=== PATIENT | male | born 1965 | race Caucasian/White ===

== ENCOUNTER 2019-11-30 17:03 | Outpatient (REF) | payer OTHER, SELFPAY ==
[2019-11-30 22:09] LABS: Calculated LDL 181 mg/dL (<100); Cholesterol 261 mg/dL (<200); HDL Cholesterol 63 mg/dL (40-60); Triglyceride 85 mg/dL (<150)
[2019-12-03 08:55] LABS: PSA, Screening 0.3 ng/mL (0.0-3.5)
== END 2019-11-30 17:23 ==
LOC: LBN 17:03
PROVIDERS: PCP Emergency Medicine; Visit Provider Emergency Medicine
DX: E03.9 Hypothyroidism, unspecified (principal); Z12.5 Encounter for screening for malignant neoplasm of prostate; Z13.89 Encounter for screening for other disorder
CPT/HCPCS: 80061; 84153; 84443

== ENCOUNTER 2020-02-12 01:52 | Outpatient (CLI) | payer OTHER, SELFPAY ==
[2020-02-12 11:20] LABS: Calculated LDL 105 mg/dL (<100); Cholesterol 185 mg/dL (<200); HDL Cholesterol 71 mg/dL (40-60); Triglyceride 49 mg/dL (<150)
== END 2020-02-12 02:12 ==
PROVIDERS: PCP Emergency Medicine; Visit Provider Emergency Medicine
DX: E78.5 Hyperlipidemia, unspecified (principal)
CPT/HCPCS: 36415; 80061

== ENCOUNTER 2020-02-12 03:36 | Outpatient (CLI) | payer OTHER, SELFPAY ==
[2020-02-13 17:29] LABS: SARS-CoV-2 RNA Not Detected (NotDetected); SARS-CoV-2 RNA Source Nasal/Nares
== END 2020-02-12 03:56 ==
PROVIDERS: Surgery; PCP Emergency Medicine; Visit Provider Surgery
DX: Z11.59 Encounter for screening for other viral diseases (principal); Z01.818 Encounter for other preprocedural examination
CPT/HCPCS: U0003

== ENCOUNTER 2020-02-15 07:02 | Day surgery (SDC) | payer OTHER, SELFPAY ==
[2020-02-15 07:25] VITALS: BP 120/73; PULSE 62; RESP 18; TEMP 36.4; O2SAT 98
[2020-02-15] MEDS: Lactated Ringers 1,000 ML 80 ML IV (07:47)
--- NOTE | 2020-02-15 08:36 | W.PM.DSUDISC ---
Discharge Plan Disposition Patient Disposition: HOME Condition: Good Discharge Details Reason For Visit: EGD, Colonoscopy Attending Provider: Penelope Howard Primary Care Provider: Jericho Smith Home Meds and New Rx's Prescriptions: Continued rosuvastatin [Crestor] 10 mg tablet 10 mg PO DAILY Qty: 90 RF: 3 triamcinolone acetonide 0.1 % ointment 1 applic TP DAILY Qty: 80 RF: 0 levothyroxine [Synthroid] 100 mcg tablet 100 mcg PO DAILY Qty: 90 RF: 4 Discontinued bisacodyl [Dulcolax (bisacodyl)] 5 mg tablet,delayed release (DR/EC) 5 mg PO ONCE Qty: 4 RF: 0 polyethylene glycol 3350 17 gram/dose powder 17 g PO ONCE Qty: 238 RF: 0 Discharge Instructions Additional Instructions: Findings: Your upper endoscopy showed a possible short segment of Barretts esophagus. My office will contact you with biopsy results. The colonoscopy was normal. Follow up: Plan for routine colon screening in 10 years or sooner if symptoms arise. If Barretts esophagus is confirmed, you will need an upper endoscopy in 3 years. Please call if you develop: fevers >101.5 Nausea or Vomiting Abdominal pain that is not transient DAY SURGERY UNIT POST COLONOSCOPY INSTRUCTIONS 1. Because there will be medication in your system for the next 24 hours, you may feel a little sleepy. Your coordination will be affected. Therefore: a. Do not drive or operate dangerous equipment for 24 hours. b. Do not drink alcohol beverages for 24 hours (not even beer). c. Plan to go home and rest for the day. 2. Generally there are no restrictions on your activity after a day or so has gone by, but you may feel a bit fatigued for a few days. 3 After you arrive home you may have a light meal and return to a normal diet as you can tolerate it without feeling sick to your stomach. 4. After surgery, you may feel pain or discomfort. This should be only transient, but if it persists please contact your doctor. 5. If there are any questions regarding the findings of your procedure, please feel free to contact your doctor. 6. If you are unable to contact your doctor with a problem, contact the hospital at [phone]. 7. Continue all your regular medications unless directed otherwise. I understand the above instructions and have no questions. Signature of Patient or Responsible Adult Escort Date/Time Name of Responsible Adult Escort Signature of Nurse Date/Time Activity:: Activity as Tolerated Diet:: As Tolerated Discharge Orders Discharge Orders: Discharge Order (Routine); Ordered 02/15/20 Ordered By: Penelope Howard DS: Diagnosis Discharge Diagnosis (1) Atypical chest pain: Status: Acute (2) Normal colonoscopy: Status: Acute
--- NOTE | 2020-02-15 08:37 | W.COLOREPORT ---
Date of service: 02/15/20 Time of Service: 09:47 Colonoscopy Report Date of procedure: 02/15/20 Pre-op diagnosis general: Atypical chest pain, colon screening Post-op diagnosis procedure note: other (Possible Barretts, normal colon) Procedure: EGD with distal esophageal biopsy Colonoscopy Surgeon: Penelope Howard Anesthesia proc note operative: MAC Indications: This 54 year old presents for evaluation of atypical chest pain. Recent stress ECHO normal. He is also due for his first screening colonoscopy. No symptoms or FH colon cancer. Procedure Description: The patient was placed in the left lateral position and propofol titrated to sedation. The endoscope was advanced into the esophagus under direct visualization. The scope was passed through the stomach and into the duodenum. There was no duodenitis or ulceration noted. The stomach itself was normal including on retroflexed view of the fundus and lesser curvature. The GE junction was inspected and showed no significant stricture, inflammation, masses. There was a single extension of gastric appearing epithelium into the distal esophagus. This was only 1-2cm long. This region was biopsied. The scope was slowly withdrawn with no other esophageal lesions found. Digital rectal examination revealed no abnormalities. The scope was advanced to the cecum without difficulty. The ileocecal valve and appendiceal orifice were clearly identified. The prep was good. The scope was slowly withdrawn over the course of greater than 6 minutes with no abnormalities seen in the ascending, transverse, descending, sigmoid colon or rectum including on retroflexed view. The patient tolerated the procedure well and was stable to recovery. Plan for routine screening colonoscopy in 10 years or sooner if symptoms indicate.
--- NOTE | 2020-02-15 09:14 | ESO_PTH ---
PATIENT: Jayme Molina LOC: [facility] U#:[id number] AGE/SX: 54/M ROOM: RE02/15/[address]: Penelope Howard MD : [id number] BED: DIS: 02/15/2020 SPEC #: [id number] RECD: 02/15/20 12:30 STATUS: BERNICE REQ #: [id number] ZACHERY: 02/15/20 09:[address]: Penelope Howard DEPT: Surgical Specimen RECD BY: Lexii Gill ENTERED: 02/15/20 12:31 SP TYPE: Eso OTHR DR: Jericho Smith DO Tissues: 1 - ESOPHAGUS BIOPSY Procedures: GROSS AND MICRO LEVEL 4 Comments: [id number]
[2020-02-15 10:20] VITALS: BP 122/81; PULSE 61; RESP 16; TEMP 36.3; O2SAT 100
== END 2020-02-15 10:29 | disposition home or self-care (01) ==
PROVIDERS: PCP Emergency Medicine; Visit Provider Surgery
PROC: (CPT 43239; principal; 2020-02-15 08:45)
DX: Z12.11 Encounter for screening for malignant neoplasm of colon (principal); K21.00 Gastro-esophageal reflux disease with esophagitis, without bleeding; R07.89 Other chest pain; E03.9 Hypothyroidism, unspecified
CPT/HCPCS: 43239; 45378; 88305; J2001

== ENCOUNTER 2020-07-21 16:02 | Outpatient (CLI) | payer OTHER, SELFPAY ==
--- NOTE | 2020-07-21 15:30 | DI.RAD_ITS ---
EXAM: XR ELBOW RT COMPLETE CLINICAL HISTORY: RIGHT ELBOW PAIN. TECHNIQUE: 2D digital imaging was performed. COMPARISON: No exams were available for comparison FINDINGS: There is no evidence of fracture or joint effusion. There is no swelling of the olecranon bursa. Ca lcification is noted at the insertion site of the triceps tendon on the posterior olecranon. No abno rmality evident at the epicondyles. IMPRESSION: DATA REPOSITORY: RADIATION DOSE DELIVERED:
== END 2020-07-21 16:03 | disposition home or self-care (01) ==
LOC: DIORS 16:02
PROVIDERS: PCP Emergency Medicine; Referring Provider Emergency Medicine; Visit Provider Student in an Organized Health Care Education/Training Program
DX: M25.521 Pain in right elbow (principal)
CPT/HCPCS: 73080

== ENCOUNTER 2020-12-09 02:00 | Outpatient (CLI) | payer OTHER, SELFPAY ==
[2020-12-09 09:05] LABS: Calculated LDL 119 mg/dL (<100); Cholesterol 199 mg/dL (<200); HDL Cholesterol 67 mg/dL (40-60); TSH 1.78 uIU/mL (0.36-3.74); Triglyceride 66 mg/dL (<150)
== END 2020-12-09 02:01 | disposition home or self-care (01) ==
LOC: LBO 02:00
PROVIDERS: PCP Emergency Medicine; Visit Provider Emergency Medicine
DX: E03.9 Hypothyroidism, unspecified; E78.5 Hyperlipidemia, unspecified
CPT/HCPCS: 36415; 80061; 84443

== ENCOUNTER 2021-10-07 13:12 | Outpatient (CLI) | payer OTHER, SELFPAY ==
[2021-10-07 22:37] LABS: PSA, Screening 0.3 ng/mL (<=3.5)
== END 2021-10-07 13:13 | disposition home or self-care (01) ==
LOC: LBO 13:12
PROVIDERS: PCP Nurse Practitioner Family; Visit Provider Nurse Practitioner Family
DX: R39.12 Poor urinary stream (principal); Z12.5 Encounter for screening for malignant neoplasm of prostate
CPT/HCPCS: 36415; 84153

== ENCOUNTER 2022-04-30 11:00 | Outpatient (CLI) | payer OTHER, SELFPAY ==
--- NOTE | 2022-04-30 10:00 | DI.RAD_ITS ---
Exam(s) XR KNEE RT 4V AP,LAT,EUGENIO,PAT EXAM: XR KNEE RT 4V AP,LAT,EUGENIO,PAT CLINICAL HISTORY: evaluation of knee. TECHNIQUE: 2D digital imaging was performed. COMPARISON: CR RIGHT KNEE 3 VIEWS from 05/17/2016 FINDINGS: Four views: Compared to prior images 2017 there is further progression of degenerative change in knee. No fractu re evident. Joint effusion seen. There is moderate narrowing of the lateral compartment on the weight-bearing view. No narrowing of t he medial compartment. Patellofemoral compartment exhibits moderate-advanced degenerative change, be st seen on the merchant's view. No osseous lesions. IMPRESSION: Degenerative changes. Mild further progression when compared to 2017. Joint effusion noted. DATA REPOSITORY: RADIATION DOSE DELIVERED:
== END 2022-04-30 11:01 | disposition home or self-care (01) ==
LOC: DIORS 11:00
PROVIDERS: PCP Nurse Practitioner Family; Referring Provider Nurse Practitioner Family; Visit Provider Student in an Organized Health Care Education/Training Program
DX: M17.11 Unilateral primary osteoarthritis, right knee (principal)
CPT/HCPCS: 73564

== ENCOUNTER 2022-05-20 09:06 | Outpatient (CLI) | payer OTHER, SELFPAY ==
--- NOTE | 2022-05-20 08:45 | DI.MRI_ITS ---
Exam(s) MR LUMBAR SPINE WO EXAM: MR LUMBAR SPINE WO CLINICAL HISTORY: numbness of right leg,low back pain, m54.50. TECHNIQUE: Multiplanar multisequence MRI of the Lumbar spine was performed. COMPARISON: No exams were available for comparison FINDINGS: Bones: The last intervertebral disc space is designated the L5/S1 level for the numbering purpose of this examination. The vertebral body heights are well maintained. Alignment is satisfactory. There are endplate degenerative signal changes. Cord: The conus tip ends at the T12-L1 level. It is of normal size and signal intensity. T12-L1: No disc herniations or bulges are present. No central spinal canal or neural foraminal stenos is. L1-2: No disc herniations or bulges are present. No central spinal canal or neural foraminal stenosis . L2-3: No disc herniations or bulges are present. No central spinal canal or neural foraminal stenosis . L3-4: There is a mild diffuse disc bulge. There is mild narrowing of the central spinal canal. No s ignificant neural foraminal stenosis is present.There are hypertrophic changes of the facets. L4-5: There is a small central disc herniation. Mild hypertrophic changes of the facets are seen. T here is no significant central spinal canal stenosis. No neural foraminal stenosis is seen. L5-S1: There is a small right paracentral disc herniation with extrusion posterior to the L5 vertebra l body. It causes right lateral recess stenosis compressing the right L5 nerve root. No central spi nal canal or neural foraminal stenosis. Soft tissues: The visualized SI joints and sacrum are well maintained. The paraspinal soft tissues ar e unremarkable. IMPRESSION: 1. Right paracentral disc herniation at L5-S1 with extrusion posterior to the L5 vertebral body. It causes right lateral recess stenosis compressing the right L5 nerve root. 2. Multilevel degenerative changes in the lumbar spine as described above. DATA REPOSITORY:
== END 2022-05-20 09:26 ==
LOC: DI 09:12
PROVIDERS: PCP Nurse Practitioner Family; Visit Provider Nurse Practitioner Family
DX: M54.59 Other low back pain (principal); R20.0 Anesthesia of skin; M51.17 Intervertebral disc disorders with radiculopathy, lumbosacral region
CPT/HCPCS: 72148

== ENCOUNTER 2023-01-17 03:36 | Outpatient (CLI) | payer OTHER, SELFPAY ==
[2023-01-17 12:24] LABS: Calculated LDL 136 mg/dL (<100); Cholesterol 224 mg/dL (<200); HDL Cholesterol 67 mg/dL (40-60); TSH (W/Ref FT4) 5.04 uIU/mL (0.36-3.74); Triglyceride 107 mg/dL (<150)
[2023-01-17 12:46] LABS: FREE T4 0.85 ng/dL (0.76-1.46)
== END 2023-01-17 03:37 | disposition home or self-care (01) ==
PROVIDERS: PCP Nurse Practitioner Family; Visit Provider Nurse Practitioner Family
DX: E03.9 Hypothyroidism, unspecified (principal); E78.5 Hyperlipidemia, unspecified
CPT/HCPCS: 36415; 80061; 84439; 84443

== ENCOUNTER → 2023-03-23 01:04 | Outpatient (CLI) | payer OTHER, SELFPAY ==
--- NOTE | 2023-03-23 11:11 | DI.RAD_ITS ---
Exam(s) XR CERVICAL SPINE COMP 4-5V EXAM: XR CERVICAL SPINE COMP 4-5V CLINICAL HISTORY: Worsening symptoms/failing PT,paresthesia upper and lower ext,R20.2. TECHNIQUE: 2D digital imaging was performed. COMPARISON: No exams were available for comparison FINDINGS: Five views. There is no evidence of fracture, listhesis, nor offset of the spinal laminar line. All of the disc spaces exhibit normal height. On the oblique views there is small right-sided Luschka joint osteophy donald at C4-5 level. No other Luschka joint osteophytes evident. Facet joints appear unremarkable. T here are no cervical ribs. Incidentally noted is calcification in left side of the neck which is most probably within plaque in the carotid artery. IMPRESSION: Mild evidence of degenerative disc disease at C4-5 level, this despite preserved disc height at this level. Small unilateral Luschka joint osteophyte evident at this level. Left neck calcification which is probably within atheromatous plaque and if clinically indicated Dopp ler imaging the carotid arteries in the neck can be performed to determine if there is significant st enosis. DATA REPOSITORY: RADIATION DOSE DELIVERED:
== END ==
PROVIDERS: PCP Nurse Practitioner Family; Visit Provider Nurse Practitioner Family
DX: M50.321 Other cervical disc degeneration at C4-C5 level (principal)
CPT/HCPCS: 72050

== ENCOUNTER 2024-01-30 16:46 | Outpatient (CLI) | payer OTHER, SELFPAY ==
[2024-01-30 16:52] LABS: Hemoglobin A1C 5.8 % (<5.7)
[2024-01-30 17:39] LABS: Calculated LDL 120 mg/dL (<100); Cholesterol 213 mg/dL (<200); HDL Cholesterol 62 mg/dL (40-60); TSH (W/Ref FT4) 2.59 uIU/mL (0.36-3.74); Triglyceride 156 mg/dL (<150)
[2024-01-31 19:12] LABS: PSA, Screening 0.3 ng/mL (<=3.5)
== END 2024-01-30 16:47 | disposition home or self-care (01) ==
LOC: LBO 16:46
PROVIDERS: PCP Nurse Practitioner Family; Visit Provider Nurse Practitioner Family
DX: E03.9 Hypothyroidism, unspecified (principal); Z13.1 Encounter for screening for diabetes mellitus; Z12.5 Encounter for screening for malignant neoplasm of prostate; Z13.220 Encounter for screening for lipoid disorders; E78.5 Hyperlipidemia, unspecified
CPT/HCPCS: 36415; 80061; 84153; 83036; 84443

== ENCOUNTER 2024-03-27 02:26 | Outpatient (CLI) | payer OTHER, SELFPAY ==
[2024-03-27 09:14] LABS: HCT 44.8 % (40.0-50.0); HGB 14.7 g/dL (13.5-17.5); MCH 30.8 pg (27.0-33.0); MCHC 32.8 % (32.0-36.0); MCV 94 fL (80-95); MPV 8.3 fL (8.0-11.0); Platelet Count 240 10^3/uL (130-400); RBC 4.78 10^6/uL (4.36-5.78); RDW 12.2 % (11.8-14.1); RDW-SD 42.5 fL; WBC 5.12 10^3/uL (4.4-10.8)
[2024-03-27 09:52] LABS: ALT 23 U/L (16-63); AST 15 U/L (15-37); Albumin 3.7 g/dL (3.4-5.0); Alkaline Phosphatase 74 U/L (46-116); Anion Gap 3.1 mmol/L (3-11); BUN 13 mg/dL (7-18); Bilirubin, Total 0.39 mg/dL (0.2-1.0); C-Reactive Protein < 0.50 mg/dL (<or=0.5); CO2 33.9 mmol/L (21.0-32.0); CREATININE 0.9 mg/dL (0.70-1.30); Calcium 8.1 mg/dL (8.5-10.1); Chloride 103 mmol/L (98-107); Estimated GFR 100.24 (mL/min/1.73m2); Glucose 109 mg/dL (74-106); Potassium 4.5 mmol/L (3.5-5.1); Sodium 140 mmol/L (136-145); Total Protein 7.3 g/dL (6.4-8.2)
[2024-03-28 10:00] LABS: Lyme Ab w Rflx to Lyme Confirm Negative (Negative)
[2024-03-29 23:17] LABS: Anaplasma phagocytophilum Negative (Negative); B. miyamotoi PCR Negative (Negative); Babesia divergens/MO-1 Negative (Negative); Babesia duncani Negative (Negative); Babesia microti Negative (Negative); Ehrlichia chaffeensis Negative (Negative); Ehrlichia ewingii/canis Negative (Negative); Ehrlichia muris eauclairensis Negative (Negative)
== END 2024-03-27 02:27 | disposition home or self-care (01) ==
PROVIDERS: PCP Nurse Practitioner Family; Visit Provider Nurse Practitioner Family
DX: M35.3 Polymyalgia rheumatica (principal)
CPT/HCPCS: 36415; 80053; 85027; 87798; 86140; 86618

== ENCOUNTER 2025-02-05 00:41 | Outpatient (CLI) | payer OTHER, SELFPAY ==
[2025-02-05 15:24] LABS: Hemoglobin A1C 5.8 % (<5.7)
[2025-02-05 16:40] LABS: TSH (W/Ref FT4) 5.37 uIU/mL (0.55-4.78)
[2025-02-05 18:13] LABS: Cholesterol 210 mg/dL (<200); HDL Cholesterol 56 mg/dL (>40)
== END 2025-02-05 00:42 | disposition home or self-care (01) ==
LOC: LBO 00:41
PROVIDERS: PCP Nurse Practitioner Family; Visit Provider Nurse Practitioner Family
DX: Z13.220 Encounter for screening for lipoid disorders (principal); Z13.1 Encounter for screening for diabetes mellitus; E03.9 Hypothyroidism, unspecified
CPT/HCPCS: 36415; 80061; 83036; 84439; 84443